=== PATIENT | female | born 1930 | race Caucasian/White ===

== ENCOUNTER 2021-07-06 03:04 | Emergency (ER) | payer MEDICARE, OTHER, SELFPAY ==
[2021-07-06 03:04] VITALS: BP_SYST 162
[2021-07-06 04:20] LABS: BASOPHILS % (AUTO) 0.4 % (0.0-2.0); EOSINOPHILS % (AUTO) 0.2 % (0.0-4.0); HEMATOCRIT 34.4 % (36-48); HEMOGLOBIN 11.2 g/dL (12.0-16.0); LYMPHOCYTES # (AUTO) 0.7 K/uL (1.0-5.5); LYMPHOCYTES % (AUTO) 7.3 % (20.5-51.5); MEAN CORPUSCULAR HEMOGLOBIN 28 pg (27-31); MEAN CORPUSCULAR HGB CONC 33 % (32-36); MEAN CORPUSCULAR VOLUME 87 fL (79.0-98.0); MONOCYTES # (AUTO) 0.6 K/uL (0.0-1.0); MONOCYTES % (AUTO) 5.6 % (1.7-9.3); NEUTROPHILS # (AUTO) 8.8 K/uL (1.8-7.7); NEUTROPHILS % (AUTO) 86.5 % (40.0-70.0); PLATELET COUNT (AUTO) 738 K/uL (130-430); RED BLOOD CELL COUNT(AUTO) 3.94 MIL/uL (4.2-6.2); RED CELL DISTRIBUTION WIDTH 14.4 % (9.0-15.0); WHITE BLOOD COUNT (AUTO) 10.2 K/uL (4.8-10.8)
[2021-07-06 04:35] LABS: ANION GAP 17 (5-15); CALCIUM 8.8 mg/dL (8.4-11.0); CHLORIDE 108 mmol/L (98-107); CREATININE 0.77 mg/dL (0.55-1.30); GLUCOSE 329 mg/dL (70-99); SODIUM SERUM 148 mmol/L (136-145); UREA NITROGEN, BLOOD 22 mg/dL (8-21)
[2021-07-06 04:39] LABS: INR 1.1 (0.8-1.2); PROTHROMBIN TIME 11.5 SECS (9.5-12.5)
[2021-07-06 04:41] LABS: ALANINE AMINOTRANSFERASE 10 U/L (12-78); ALBUMIN 1.9 g/dL (3.4-4.8); ASPARTATE AMINOTRANSFERASE 15 U/L (10-37); TOTAL BILIRUBIN 0.4 mg/dL (0.0-1.0)
[2021-07-06 04:42] LABS: POTASSIUM 2.9 mmol/L (3.5-5.1)
[2021-07-06] MEDS ORDERED: MAGNESIUM SULFATE 50 ML IV ONE (04:45)
[2021-07-06] MEDS ORDERED: KCL 40 mEq in 100 mL (PREMIX) 100 ML IV ONE (04:45)
[2021-07-06] MEDS ORDERED: NACL 0.9% 1,000 ML IV ONE (05:15)
[2021-07-06 05:17] LABS: ACETONE, SERUM MODERATE (NEGATIVE)
[2021-07-06] MEDS ORDERED: KCL 20 mEq in 100 mL (PREMIX) 200 ML IV ONE (05:41)
[2021-07-06] MEDS ORDERED: METO25TA6 PO (07:17)
[2021-07-06] MEDS ORDERED: LISI20TA PO (07:17)
--- NOTE | 2021-07-06 07:36 | NUR ---
report received from barbara bazan. pt lying in bed supine vss. awaiting 2nd troponin
[2021-07-06] MEDS ORDERED: INSULIN REGULAR, HUMAN 10 UNITS/0.1 ML INJ IVP ONE (08:00)
--- NOTE | 2021-07-06 08:25 | NUR ---
[place] [facility] [place] [phone] ETA [id number] SPOKE TO RICARDO
[2021-07-06 08:37] VITALS: BP_SYST 189
--- NOTE | 2021-07-06 08:53 | NUR ---
Patient to be transferred to [facility]. Is being transferred due to higher level of care. Receiving facility has accepting physician MANJU and available space. [facility] physician has signed transfer form. Patient belongings inventoried and will be sent with patient. Copy of nursing notes, lab reports, EKG, Physicians Orders and X-rays to be sent with patient. Report called to DAVEY GAMING at receiving facility. Receiving physician is MANJU. [facility] ambulance service has been called for transfer.
[2021-07-06 09:10] LABS: ANION GAP 16 (5-15); CALCIUM 8.8 mg/dL (8.4-11.0); CHLORIDE 109 mmol/L (98-107); CREATININE 0.77 mg/dL (0.55-1.30); GLUCOSE 305 mg/dL (70-99); SODIUM SERUM 148 mmol/L (136-145); UREA NITROGEN, BLOOD 20 mg/dL (8-21)
--- NOTE | 2021-07-06 09:31 | NUR ---
CALLED [facility] SPOKE TO POPEYE GAMING AND TOLD HER THAT 2ND TROPONIN ELEVATED .
== END 2021-07-06 09:31 | disposition short-term general hospital (02) ==
LOC: SED 03:04
DX: E87.6 Hypokalemia (principal); E11.65 Type 2 diabetes mellitus with hyperglycemia; R13.10 Dysphagia, unspecified; Z20.822 Contact with and (suspected) exposure to COVID-19
CPT/HCPCS: 36415; 36600; 71045; 80048; 80053; 82009; 82803; 82962; 83605; 83735; 83880; 84484; 85025; 85610; 85730; 87040; 87426; 93005; 96365; 96366; 96368; 96375; 99285; J1815; J3475; J3480